=== PATIENT | female | born 1965 | race Caucasian/White ===

== ENCOUNTER 2022-04-10 07:49 | Emergency (ER) | payer OTHER ==
[~2022-04-10] VITALS: Ht 175.3 cm; Wt 54.4 kg
[2022-04-10] MEDS ORDERED: AMOCLA875 PO (08:20)
[2022-04-10] MEDS ORDERED: Norco 5-325 Ta1 EACH PO (09:59)
== END 2022-04-10 10:00 | disposition home or self-care (01) ==
LOC: ER 07:49
DX: S61.452A Open bite of left hand, initial encounter (principal); W54.0XXA Bitten by dog, initial encounter; Z23 Encounter for immunization
CPT/HCPCS: 73120; 90714; A9270

== ENCOUNTER → 2022-05-23 | Outpatient (CLI) | payer OTHER ==
[~2022-05-23] MED LIST: AMOCLA875 PO; Norco 5-325 Ta1 EACH PO
[2022-05-30 14:09] LABS: HPV 16 Negative (Negative); HPV 18 Negative (Negative); HPV OTHER HR TYPES Negative (Negative)
== END | disposition home or self-care (01) ==
LOC: LAB SHORT 10:45 → LAB 10:45
PROVIDERS: Nurse Practitioner Family
DX: Z01.419 Encounter for gynecological examination (general) (routine) without abnormal findings (principal)
CPT/HCPCS: 87624; G0145

== ENCOUNTER 2022-11-07 16:38 | Emergency (ER) | payer OTHER ==
[~2022-11-07] VITALS: Ht 170.2 cm; Wt 59.0 kg
[2022-11-07] MEDS ORDERED: CRUTCH2 XX (18:22)
[2022-11-07] MEDS ORDERED: Norco 5-325 Ta1 EACH PO (18:23)
[2022-11-07 18:30] VITALS: BP 104/68
== END 2022-11-07 19:05 | disposition home or self-care (01) ==
LOC: ER 16:38
DX: S82.141A Displaced bicondylar fracture of right tibia, initial encounter for closed fracture (principal); S00.83XA Contusion of other part of head, initial encounter; W13.2XXA Fall from, out of or through roof, initial encounter; Z79.899 Other long term (current) drug therapy
CPT/HCPCS: 73590; A9270